=== PATIENT | female | born 1950 | race Caucasian/White ===

== ENCOUNTER 2022-06-15 10:26 | Emergency (ER) | payer MEDICARE ==
[~2022-06-15] VITALS: Ht 167.6 cm; Wt 95.2 kg
[2022-06-15 11:21] LABS: BASOPHILS ABSOLUTE AUTO 0.03 K/mm3 (0.00-0.23); BASOPHILS PERCENT AUTO 0 % (0-2); EOSINOPHILS PERCENT AUTO 1 % (0-6); Hemoglobin 14.6 g/dL (11.5-16.0); IMMATURE GRAN ABSOLUTE AUTO 0.03 K/mm3 (0.00-0.10); IMMATURE GRAN PERCENT AUTO 0 % (0-1); LYMPHOCYTES ABSOLUTE AUTO 1.73 K/mm3 (0.84-5.20); LYMPHOCYTES PERCENT AUTO 19 % (21-46); MONOCYTES PERCENT AUTO 9 % (4-13); Mean Corpuscular HGB 30.9 pg (26.0-34.0); Mean Corpuscular HGB Conc 32.4 g/dL (31.5-36.5); Mean Corpuscular Volume 95 fL (80-100); Mean Platelet Volume 9.5 fL (9.1-12.4); NEUTROPHILS ABSOLUTE AUTO 6.26 K/mm3 (1.96-9.15); NEUTROPHILS PERCENT AUTO 70 % (41-73); Platelet Count 359 K/mm3 (150-400); RDW Coefficient Variation 12.7 % (11.7-14.2); RDW Standard Deviation 44.9 fL (35.1-46.3); Red Blood Cell Count 4.72 M/mm3 (3.80-5.20); White Blood Cell Count 8.95 K/mm3 (4.00-11.30)
[2022-06-15] MEDS ORDERED: VENLAFAXINE HC225 MG PO (11:36)
[2022-06-15] MEDS ORDERED: PRAVASTATIN SOD20 MG PO (11:36)
[2022-06-15 11:40] LABS: Albumin, Blood 3.5 g/dL (3.4-5.0); Albumin/Globulin Ratio 0.9 (0.8-1.8); Bilirubin, Total 0.4 mg/dL (0.1-1.0); Bun/Creatinine Ratio 28.1 (12.0-20.0); Calcium, Blood 9.5 mg/dL (8.5-10.1); Creatinine, Blood 0.57 mg/dL (0.40-1.00); Total Protein, Blood 7.5 g/dL (6.4-8.2)
== END 2022-06-15 12:25 | disposition home or self-care (01) ==
LOC: ER 10:26
PROVIDERS: Physician Assistant
DX: R07.89 Other chest pain (principal)
CPT/HCPCS: 36415; 71045; 80053; 83690; 84484; 85025; 93005; 93010

== ENCOUNTER 2022-06-18 09:18 | Emergency (ER) | payer MEDICARE ==
[~2022-06-18] VITALS: Ht 167.6 cm; Wt 95.2 kg
[~2022-06-18 09:18] MED LIST: PRAVASTATIN SOD20 MG PO; VENLAFAXINE HC225 MG PO
[2022-06-18 10:33] LABS: BASOPHILS ABSOLUTE AUTO 0.03 K/mm3 (0.00-0.23); BASOPHILS PERCENT AUTO 0 % (0-2); EOSINOPHILS ABSOLUTE AUTO 0.11 K/mm3 (0.00-0.68); EOSINOPHILS PERCENT AUTO 1 % (0-6); Hematocrit 41.1 % (33.0-51.0); Hemoglobin 13.8 g/dL (11.5-16.0); IMMATURE GRAN ABSOLUTE AUTO 0.03 K/mm3 (0.00-0.10); IMMATURE GRAN PERCENT AUTO 0 % (0-1); LYMPHOCYTES ABSOLUTE AUTO 1.88 K/mm3 (0.84-5.20); LYMPHOCYTES PERCENT AUTO 19 % (21-46); MONOCYTES ABSOLUTE AUTO 1.14 K/mm3 (0.16-1.47); MONOCYTES PERCENT AUTO 12 % (4-13); Mean Corpuscular HGB 31.2 pg (26.0-34.0); Mean Corpuscular HGB Conc 33.6 g/dL (31.5-36.5); Mean Corpuscular Volume 93 fL (80-100); Mean Platelet Volume 9.7 fL (9.1-12.4); NEUTROPHILS ABSOLUTE AUTO 6.54 K/mm3 (1.96-9.15); NEUTROPHILS PERCENT AUTO 67 % (41-73); Platelet Count 364 K/mm3 (150-400); RDW Coefficient Variation 12.8 % (11.7-14.2); RDW Standard Deviation 44.1 fL (35.1-46.3); Red Blood Cell Count 4.42 M/mm3 (3.80-5.20); White Blood Cell Count 9.73 K/mm3 (4.00-11.30)
[2022-06-18 10:55] LABS: Albumin, Blood 3.3 g/dL (3.4-5.0); Albumin/Globulin Ratio 0.8 (0.8-1.8); Bilirubin, Total 0.6 mg/dL (0.1-1.0); Bun/Creatinine Ratio 32.3 (12.0-20.0); Calcium, Blood 9.3 mg/dL (8.5-10.1); Creatinine, Blood 0.56 mg/dL (0.40-1.00); Globulin, Blood 4.3 g/dL (2.2-4.0); Potassium, Blood 4.5 mmol/L (3.5-5.5); Total Protein, Blood 7.6 g/dL (6.4-8.2)
== END 2022-06-18 11:25 | disposition home or self-care (01) ==
LOC: ER 09:18
PROVIDERS: Physician Assistant
DX: R07.9 Chest pain, unspecified (principal); Z79.899 Other long term (current) drug therapy; Z88.0 Allergy status to penicillin; Z87.891 Personal history of nicotine dependence
CPT/HCPCS: 36415; 71046; 80053; 83690; 84484; 85025; 93005; 93010

== ENCOUNTER 2023-01-20 10:10 | Day surgery (SDC) | payer MEDICARE ==
[~2023-01-20] VITALS: Ht 167.6 cm; Wt 93.2 kg
[2023-01-20] MEDS ORDERED: MELA3 (10:23)
[2023-01-20 11:59] VITALS: BP 133/91
== END 2023-01-20 11:55 | disposition home or self-care (01) ==
LOC: ORSCSDS 10:10
PROVIDERS: Surgery
PROC: 0DB48ZX Excision of Esophagogastric Junction, Via Natural or Artificial Opening Endoscopic, Diagnostic (ICD-10-PCS; principal; 2023-01-20 11:30)
DX: R93.3 Abnormal findings on diagnostic imaging of other parts of digestive tract (principal); C80.1 Malignant (primary) neoplasm, unspecified; K29.70 Gastritis, unspecified, without bleeding; E78.5 Hyperlipidemia, unspecified; F41.9 Anxiety disorder, unspecified; Z86.010 Personal history of colon polyps; Z87.891 Personal history of nicotine dependence; Z79.899 Other long term (current) drug therapy
CPT/HCPCS: 88305; 88342; J2704; J7120

== ENCOUNTER 2024-04-16 09:38 | Day surgery (SDC) | payer MEDICARE ==
[~2024-04-16] VITALS: Ht 167.6 cm; Wt 87.6 kg
[~2024-04-16 09:38] MED LIST changes: +Balanced Salt Epinephrine Irrigation Solution 500 mL IR SCH; +FentaNYL Citrate 50 MCG/ML 2 ML Injection ONE; +Lidocaine HCl/Pf 1% 5 ML VIAL XX SCH; +MELA3; +Midazolam HCl 1MG / ML 2ML Vial ONE; +Moxifloxacin HCL 0.5 MG/0.1 ML 0.4MLSYR RIGHTEYE SCH; +NS 500 ML IV ONE; +PHENYLEPHRINE\\TROPICAMIDE\\TETRACAINE OPHTHALMIC DILATING SOLN RIGHTEYE PRN; +Povidone-Iodine 450 DROP/30 ML Solution RIGHTEYE SCH
[2024-04-16] MEDS ORDERED: IBUP200 PO (11:25)
[2024-04-16] MEDS ORDERED: Lactated Ringer's 1,000 ML IV ONE (11:26)
[2024-04-16 13:51] VITALS: BP 150/66
--- NOTE | 2024-04-16 13:54 | NUR ---
04/16/24 Veronica4 Miah Almaguer FLUIDS USED WERE NS, NOT LR.
== END 2024-04-16 13:08 | disposition home or self-care (01) ==
LOC: ORSCSDS 09:38
PROVIDERS: Student in an Organized Health Care Education/Training Program
PROC: 08RJ3JZ Replacement of Right Lens with Synthetic Substitute, Percutaneous Approach (ICD-10-PCS; principal; 2024-04-16 11:00)
DX: H25.811 Combined forms of age-related cataract, right eye (principal); Z96.1 Presence of intraocular lens; E78.5 Hyperlipidemia, unspecified; Z87.891 Personal history of nicotine dependence; F41.9 Anxiety disorder, unspecified; Z79.899 Other long term (current) drug therapy
CPT/HCPCS: J2250; J3010; J7040; V2632

== ENCOUNTER 2024-10-25 13:51 | Emergency (ER) | payer MEDICARE ==
[~2024-10-25] VITALS: Ht 167.6 cm; Wt 79.4 kg
[~2024-10-25 13:51] MED LIST changes: -Balanced Salt Epinephrine Irrigation Solution 500 mL IR SCH; -FentaNYL Citrate 50 MCG/ML 2 ML Injection ONE; +IBUP200 PO; -Lidocaine HCl/Pf 1% 5 ML VIAL XX SCH; -Midazolam HCl 1MG / ML 2ML Vial ONE; -Moxifloxacin HCL 0.5 MG/0.1 ML 0.4MLSYR RIGHTEYE SCH; -NS 500 ML IV ONE; -PHENYLEPHRINE\\TROPICAMIDE\\TETRACAINE OPHTHALMIC DILATING SOLN RIGHTEYE PRN; -Povidone-Iodine 450 DROP/30 ML Solution RIGHTEYE SCH
[2024-10-25 14:18] LABS: BASOPHILS ABSOLUTE AUTO 0.04 K/mm3 (0.00-0.23); BASOPHILS PERCENT AUTO 0 % (0-2); EOSINOPHILS ABSOLUTE AUTO 0.02 K/mm3 (0.00-0.68); EOSINOPHILS PERCENT AUTO 0 % (0-6); Hematocrit 38.6 % (33.0-51.0); Hemoglobin 12.3 g/dL (11.5-16.0); IMMATURE GRAN ABSOLUTE AUTO 0.14 K/mm3 (0.00-0.10); IMMATURE GRAN PERCENT AUTO 1 % (0-1); LYMPHOCYTES ABSOLUTE AUTO 1.21 K/mm3 (0.84-5.20); LYMPHOCYTES PERCENT AUTO 9 % (21-46); MONOCYTES ABSOLUTE AUTO 0.88 K/mm3 (0.16-1.47); MONOCYTES PERCENT AUTO 7 % (4-13); Mean Corpuscular HGB 28.5 pg (26.0-34.0); Mean Corpuscular HGB Conc 31.9 g/dL (31.5-36.5); Mean Corpuscular Volume 89 fL (80-100); Mean Platelet Volume 9.3 fL (9.1-12.4); NEUTROPHILS ABSOLUTE AUTO 11.06 K/mm3 (1.96-9.15); NEUTROPHILS PERCENT AUTO 83 % (41-73); Platelet Count 388 K/mm3 (150-400); RDW Coefficient Variation 15.2 % (11.7-14.2); RDW Standard Deviation 50.5 fL (35.1-46.3); Red Blood Cell Count 4.32 M/mm3 (3.80-5.20); White Blood Cell Count 13.35 K/mm3 (4.00-11.30)
[2024-10-25 14:31] LABS: International Normalized Ratio 1.03
[2024-10-25 14:41] LABS: Albumin, Blood 2.8 g/dL (3.4-5.0); Albumin/Globulin Ratio 0.6 (0.8-1.8); Bilirubin, Total 0.7 mg/dL (0.1-1.0); Bun/Creatinine Ratio 38.5 (12.0-20.0); Calcium, Blood 9.2 mg/dL (8.5-10.1); Creatinine, Blood 0.65 mg/dL (0.40-1.00); Globulin, Blood 4.4 g/dL (2.2-4.0); Potassium, Blood 3.9 mmol/L (3.5-5.5); Total Protein, Blood 7.2 g/dL (6.4-8.2)
[2024-10-25] MEDS ORDERED: Lactated Ringer's 1,000 ML IV ONE (15:10)
[2024-10-25 17:15] VITALS: BP 137/77
== END 2024-10-25 17:39 | disposition home or self-care (01) ==
LOC: ER 13:51
PROVIDERS: Emergency Medicine
DX: C71.9 Malignant neoplasm of brain, unspecified (principal); Z79.02 Long term (current) use of antithrombotics/antiplatelets; Z79.899 Other long term (current) drug therapy
CPT/HCPCS: 70450; 70460; 80053; 82550; 84484; 85025; 85610; 85730; 93005; 93010; 96360-59; 96361; 99285-25; J7120; Q9967

== ENCOUNTER 2024-12-05 12:28 | Inpatient (IN) | payer MEDICARE ==
[~2024-12-05] VITALS: Ht 165.1 cm; Wt 83.1 kg
[2024-12-05 13:25] LABS: Hemoglobin 14.9 g/dL (11.5-16.0); Mean Corpuscular HGB 29.2 pg (26.0-34.0); Mean Corpuscular HGB Conc 33.9 g/dL (31.5-36.5); Mean Corpuscular Volume 86 fL (80-100); Mean Platelet Volume 9.1 fL (9.1-12.4); Platelet Count 259 K/mm3 (150-400); RDW Coefficient Variation 16.2 % (11.7-14.2); RDW Standard Deviation 51.1 fL (35.1-46.3); White Blood Cell Count 10.72 K/mm3 (4.00-11.30)
[2024-12-05 13:51] LABS: Albumin, Blood 2.9 g/dL (3.4-5.0); Albumin/Globulin Ratio 0.8 (0.8-1.8); Bilirubin, Total 0.8 mg/dL (0.1-1.0); Bun/Creatinine Ratio 38.7 (12.0-20.0); Calcium, Blood 8.8 mg/dL (8.5-10.1); Creatinine, Blood 0.67 mg/dL (0.40-1.00); Globulin, Blood 3.8 g/dL (2.2-4.0); Magnesium, Blood 1.9 mg/dL (1.6-2.4); Potassium, Blood 3.8 mmol/L (3.5-5.5); Total Protein, Blood 6.7 g/dL (6.4-8.2)
[2024-12-05 14:05] LABS: BAND PERCENT MAN 2 % (0-8); BASOPHILS PERCENT MAN 0 % (0-2); EOSINOPHILS PERCENT MAN 0 % (0-6); LYMPHOCYTES % ATYPICAL MANUAL 3 % (0-0); LYMPHOCYTES ABSOLUTE MAN 2.46 K/mm3 (0.84-5.20); LYMPHOCYTES PERCENT MAN 20 % (21-46); METAMYELOCYTE PERCENT MAN 1 % (0-0); MONOCYTES ABSOLUTE MAN 0.42 K/mm3 (0.16-1.47); MONOCYTES PERCENT MAN 4 % (4-13); MYELOCYTE ABSOLUTE MAN 0.21 K/mm3 (0.00-0.00); MYELOCYTE PERCENT MAN 2 % (0-0); SEG NEUTROPHILS PERCENT MAN 68 % (41-73); TOTAL CELLS COUNTED 100
[2024-12-05 15:28] LABS: Source, Urine Straight Cath
[2024-12-05 15:31] LABS: Appearance, Urine Hazy (Clear); Bilirubin, Urine Neg (Neg); Blood, Urine 1+ (Neg); Color, Urine Yellow (P-Yellow); Glucose Qualitative, Urine Neg (Neg); Ketones, Urine Neg (Neg); Leukocyte Esterase, Urine Neg (Neg); Nitrite, Urine Neg (Neg); Protein, Urine 1+ (Neg); Urobilinogen, Urine NORM (Normal)
[2024-12-05 15:46] LABS: Bacteria Mod /hpf; Red Blood Cells, Urine 0-2 /hpf (0-2); Squamous Epithelial Cells Few /hpf (Few); White Blood Cells, Urine 0-2 /hpf (0-5)
[2024-12-06] MEDS ORDERED: Acetaminophen 325 MG TABLET PO PRN (10:50)
[2024-12-06] MEDS ORDERED: Lidocaine 4% 1 Patch TOP PRN (10:55)
[2024-12-06] MEDS ORDERED: Ibuprofen 400 MG Tab PO PRN (10:55)
[2024-12-06 12:54] VITALS: BP 135/87
[2024-12-06 15:41] VITALS: BP 145/79
[2024-12-06] MEDS ORDERED: Masophen325 MG PO (15:49)
[2024-12-06] MEDS ORDERED: MELATONIN5 M1 PO (15:52)
--- NOTE | 2024-12-06 19:27 | NUR ---
SHIFT SUMMARY PT A&OX4. PT IS FORGETFUL AT TIMES. PT ADMITTED DUE TO METASTATIC CANCER. PT REPORTS NO PAIN JUST "DISCOMFORT AT TIMES." PT TAKES PO MEDS. PT IS SBA TO BSC WITH FWW AND GB. PT EATS ADEQUATE. FRIEND AT BEDSIDE DURING SHIFT. PT HAS OCCASSIONAL COUGH. PT ON CAME TO ASSESS PT TODAY. PLAN IS TO GO [facility] TOM[facility]. ADMIN ASSESS COMPLETE. PT REPORTS "COMFORTABLE" PT IN BED, BED IN LOWEST POSITION. CALL LIGHT IN REACH.
[2024-12-06 20:19] VITALS: BP 134/80
--- NOTE | 2024-12-07 04:05 | NUR ---
SHIFT SUMMARY: Pt is admitted for cancer with mets and is a DNR. is alert and able to make needs known. ADLs have been SBA. denies pain or discomfort when asked.
[2024-12-07 05:36] VITALS: BP 131/76
[2024-12-07 07:42] VITALS: BP 142/83
[2024-12-07] MEDS ORDERED: Venlafaxine HCl 75 MG CapCR PO SCH (09:00)
[2024-12-07 15:34] VITALS: BP 128/77
[2024-12-07] MEDS ORDERED: Ondansetron HCl 2 MG / ML 2ML Vial IV PRN (16:50)
--- NOTE | 2024-12-07 17:55 | NUR ---
PT PLEASANT TODAY. DOES GET STUCK ON REPEATITIVE WITH CONCERNS AT TIMES. DID HAVE SOME NAUSEA TODAY, OBTAINED ORDERS FOR ZOFRAN, WHEN AVAIL, SHE DECLINED. FELT BETTER. PLAN FOR D/C TOMORROW, MONDAY AT 11:00. NO OTHER CONCERNS NOTED. BED IN LOW POSITION, CALL LITE IN REACH, BED ALARM ON FOR SAFETY
[2024-12-07 20:21] VITALS: BP 113/67
[2024-12-08 03:12] VITALS: BP 134/72
[2024-12-08 07:25] VITALS: BP 129/66
[2024-12-08] MEDS ORDERED: LIDO700A20 TOP (09:54)
--- NOTE | 2024-12-08 10:57 | NUR ---
DISCHARGE REVIWED WITH PT SHE VERBALIZED UNDERSTANDING MEDS AND INST. AIDE REMOVED IV. PT TRTANSPORT HERE AT 1058. PT DISCHARGED WITH TRANSPORT
== END 2024-12-08 10:57 | disposition hospice, home (50) | DRG 54 ==
LOC: ER 12:28 → MEDS 12-06 10:16
PROVIDERS: Emergency Medicine; ADMIT Hospitalist
DX: C79.31 Secondary malignant neoplasm of brain (principal); G93.6 Cerebral edema; C34.90 Malignant neoplasm of unspecified part of unspecified bronchus or lung; M48.55XA Collapsed vertebra, not elsewhere classified, thoracolumbar region, initial encounter for fracture; F41.9 Anxiety disorder, unspecified; Z51.5 Encounter for palliative care; Z66 Do not resuscitate; Z87.891 Personal history of nicotine dependence; Z88.0 Allergy status to penicillin; Z79.1 Long term (current) use of non-steroidal anti-inflammatories (NSAID)
CPT/HCPCS: 70470; 72100; 72131; 80053; 81001; 83735; 85025; 87077; 87086; 94760; A9270; Q9967